=== PATIENT | female | born 1960 | race Two or more races ===

== ENCOUNTER 2024-10-27 11:34 | Emergency (ER) | payer BC, SELFPAY ==
--- NOTE | ~2024-10-27 | XR_ITS ---
EXAMINATION: XR CHEST CLINICAL INFORMATION: cough COMPARISON: None available. TECHNIQUE: 2 views of the chest were obtained. FINDINGS: No significant abnormality is noted involving the heart, lungs, mediastinum, bony thorax or soft tissues. XR/XR chest 2V IMPRESSION: No acute disease Electronically signed by: Madhav Perales MD 10/27/2024 12:34 PM EDT RP
[2024-10-27 11:40] VITALS: BP 167/92; PULSE 98; RESP 20; TEMP 36.8; O2SAT 96; BMI 20.8
--- NOTE | 2024-10-27 11:45 | ED.GENADULT ---
HPI - General Adult General Chief complaint: Dyspnea Stated complaint: sob Time Seen by Provider: 10/27/24 14:13 Source: patient Mode of arrival: ambulatory Limitations: language barrier (D[place]iboutian speaking cable television access coordinator utilized) History of Present Illness ED Provider: Eugenie Garcia NP HPI narrative: Patient is a 64-year-old female who presents emergency department for evaluation. She is currently here on vacation visiting from [place], arrived 10 days ago. She has been experiencing for the past 3 days shortness of breath particularly during episodes of her dry cough, or with deep inspiration, intermittent chest pain substernal associated with this, sore throat but no difficulty swallowing, feeling generally fatigued. She admits to having very bad seasonal allergies even at home for which she typically takes Benadryl very often for. She has not taken any allergy medication since being in the local area over the past 10 days. Has not visited here for many years, but does feel in the past she has experienced similar symptoms. She denies any dizziness, lightheadedness, weakness, falls or injuries. No associated abdominal pain nausea or vomiting. Related Data Previous Rx's ?Medication ?Instructions ?Recorded albuterol sulfate 90 mcg/actuation 2 puff inhalation Q4-6H PRN 10/27/24 aerosol inhaler (Ventolin HFA) shortness of breath or wheezing #6.7 grams cetirizine 10 mg tablet 10 mg PO DAILY PRN allergy 10/27/24 symptoms #30 tabs Allergies Allergy/AdvReac Type Severity Reaction Status Date / Time No Known Allergies Allergy Verified 10/27/24 11:47 Review of Systems Review of Systems: Yes all other systems are reviewed and are negative PMFSH Past Medical History Attestation statement: The following information was validated with the patient. Source: old records reviewed Social History Social History Smoked in Last 30 Days: No Use of substances other than those prescribed or required for medical reasons: No Advance Directives: No Advance Directives Information Provided: Yes Do you have a plan to hurt others: No Plan Physical Exam ED Exam Exam: Appearance: Alert.?Oriented to person, place and time. No acute distress.?Normal affect. Eyes: Pupils equal, round and reactive to light.? ENT: Pharynx normal.??Now tonsillar hypertrophy or exudates. Uvula midline. No trismus. No drooling. No hoarseness to the voice. Neck: Normal inspection.? Neck supple.??No cervical adenopathy CVS: Heart sounds normal. Normal heart rate and rhythm.? Pulses normal.?? Respiratory: No respiratory distress.? Lung sounds clear to auscultation bilaterally?? Abdomen: Soft and non-tender. Normoactive bowel sounds.?? Skin: Skin warm and dry.? Normal skin color.? . Extremities: No lower extremity edema.? No calf ttp? Neuro: Moves all extremities spontaneously. Sensation intact bilaterally. Ambulates with normal steady gait. Vital Signs: Vital Signs - 24 hr 10/27/24 11:40 10/27/24 14:02 10/27/24 14:10 Temperature 98.3 F 97.9 F 98.9 F Pulse Rate 98 87 Respiratory Rate 20 16 Blood Pressure 167/92 H 176/92 H 185/87 H Pulse Oximetry 96 99 Oxygen Delivery Method Room Air Room Air 10/27/24 16:47 Temperature 98.9 F Pulse Rate 86 Respiratory Rate 18 Blood Pressure 188/89 H Pulse Oximetry 97 Oxygen Delivery Method Room Air BMI result Body Mass Index 20.8 Course Course Course Narrative: RME, this is a rapid medical exam performed by Zachary Sow please refer to primary provider for complete H&P- 64-year-old female presents for evaluation of cough, body aches and shortness of breath. Symptoms started 3 days ago. She reports that she is on vacation from [place] and has been here for 10 days. Plan for labs, chest x-ray and viral swabs Medical Decision Making Medical Decision Making MDM Narrative: Patient is a 64 year past medical history of hypertension, hypothyroidism, hyperlipidemia, anxiety, osteoporosis, osteoarthritis who presents emergency department for evaluation of upper respiratory symptoms in addition to generalized weakness intermittent chest pain and shortness of breath as per HPI. She appears overall very well nontoxic afebrile. Speaking clear full sentences, LS CTA, no tachypnea or hypoxia. Wells block risk, low suspicion for pulmonary embolism. CXR was obtained in his without consolidation or infiltrate to suggest pneumonia, no pleural effusions or evidence of pedal edema to suggest CHF, BNP is within normal range. High sensitive troponin is below detectable limits, ECG revealing normal sinus rhythm with ventricular rate of 76, normal AYDE, QTC of 443, no ST-elevation, given duration of symptoms and lack of troponinemia at this time, do not suspect ACS viral serologies are negative. Group a strep test was negative, examination is not consistent with RPA/BOX BRANDER. I did review with patient that her symptoms may be due to exacerbation of allergies given her extensive history of such, and she is not typically exposed to the local environment, at this time treating for bronchitis, with recommendation for use of albuterol inhaler as needed, in addition to daily nondrowsy antihistamine in strict return precautions. All questions answered Differential Diagnosis Differential Diagnoses: The differential diagnosis associated with the presentation includes (See narrative above) Admission/Observation Consideration of admission/observation: Escalation of care including admission/observation considered Lab Data MDM Lab Attestation statement: I reviewed the patient's lab results. (See narrative above) 10/27/24 12:11 10/27/24 12:11 Labs: Lab Results 10/27/24 Range/Units 12:11 WBC 7.4 (4.8-10.8) X10*3/uL RBC 5.39 (4.20-5.50) X10*6/uL Hgb 15.2 (12.0-16.0) g/dl Hct 46.6 (37.0-47.0) % MCV 86.5 (80.0-98.0) fL MCH 28.2 (27.0-33.0) pg MCHC 32.6 (31.0-35.0) g/dl RDW 14.1 (11.0-16.0) % Plt Count 222 (160-400) X10*3/uL MPV 10.0 (9.4-12.3) fL Immature Gran % (Auto) 0.5 H (0.0-0.4) % Neut % (Auto) 72.9 (45-73) % Lymph % (Auto) 19.7 L (20-40) % Charlton % (Auto) 5.7 (2-11) % Eos % (Auto) 0.5 (0-4) % Baso % (Auto) 0.7 (0-2) % Lymph # (Auto) 1.5 (1.2-4.9) X10*3/uL Charlton # (Auto) 0.4 (0.1-1.2) X10*3/uL Eos # (Auto) 0.0 (0.0-0.4) X10*3/uL Baso # (Auto) 0.1 (0.0-0.2) X10*3/uL Abs Immat Gran (auto) 0.04 H (0.00-0.03) X10*3/uL Absolute Neuts (auto) 5.4 (2.0-8.3) x10*3/uL Absolute Nucleated RBC 0.000 (0.0-0.012) X10*3/uL Nucleated RBC % (auto) 0.0 (0.0-0.2) /100WBC Sodium 139 (135-145) mmol/L Potassium 3.6 (3.3-5.1) mmol/L Chloride 106 (96-108) mmol/L Carbon Dioxide 25 (22-29) mmol/L Anion Gap 12 (12-20) BUN 9 (9-16) mg/dL Creatinine 0.69 (0.5-1.4) mg/dL Estim Creat Clear Calc 75.1 Estimated GFR > 60 Random Glucose 126 H (60-115) mg/dL Calcium 9.5 (8.4-10.2) mg/dL Total Bilirubin 0.6 (0.0-1.0) mg/dL AST 34 H (5-31) U/L ALT 32 H (0-31) U/L Alkaline Phosphatase 81 (39-117) U/L Troponin I High Sens < 2.7 (<3.5-17.0) ng/L B-Natriuretic Peptide 13 (<100) pg/mL Total Protein 7.7 (6.5-8.0) g/dL Albumin 4.7 (3.5-5.0) g/dL Influenza Type A (PCR) NEGATIVE (Negative) Influenza Type B (PCR) NEGATIVE (Negative) RSV RNA Qual (PCR) NEGATIVE (Negative) SARS-CoV-2 RNA (RT-PCR) NEGATIVE (Negative) S. pyogenes GrpA SAURAV Negative (Negative) Independent Interpretation I performed an independent interpretation of an: EKG (See narrative above) and Plain X-Ray (See narrative above) Radiology Impression Discussion of test interpretation with radiology: I have reviewed the radiologist's reading. Radiologist Impression: XR/XR chest 2V IMPRESSION: No acute disease Independent Historian Clinical information obtained from an independent historian. History obtained from or confirmed by: Other (son) Prescription Management I considered prescription management with: Other (See narrative above) Chronic Conditions Patient?s care impacted by: Other (See narrative above) Discharge Plan Discharge Clinical Impression: Bronchitis Patient Disposition: Home, Self-Care Instructions: How to Use a Metered-Dose Inhaler (ED), Acute Bronchitis (ED) Prescriptions: New albuterol sulfate [Ventolin HFA] 90 mcg/actuation HFA aerosol inhaler 2 puff inhalation Q4-6H PRN (Reason: shortness of breath or wheezing) Qty: 6.7 0RF cetirizine 10 mg tablet 10 mg PO DAILY PRN (Reason: allergy symptoms) Qty: 30 0RF Referrals: Physician,Unknown J [Primary Care Provider, Medical] Interventions: ED Discharge Assessment Last Done: 10/27/24 16:47 Discharge Date/Time: 10/27/24 16:54 Print Language: [place]ib[place]ian
[2024-10-27 12:17] LABS: MANUAL DIFF FLAG NO
[2024-10-27 12:26] LABS: Hematocrit 46.6 % (37.0-47.0); Hemoglobin 15.2 g/dl (12.0-16.0); Imm Gran Abs Auto 0.04 X10*3/uL (0.00-0.03); Imm Gran Pct Auto 0.5 % (0.0-0.4); Lymphocytes Absolute Auto 1.5 X10*3/uL (1.2-4.9); Mean Corpuscular HGB Conc 32.6 g/dl (31.0-35.0); Mean Corpuscular Hemoglobin 28.2 pg (27.0-33.0); Mean Corpuscular Volume 86.5 fL (80.0-98.0); NRBC Abs Auto 0.000 X10*3/uL (0.0-0.012); NRBC Pct Auto 0.0 /100WBC (0.0-0.2); Platelet Count 222 X10*3/uL (160-400); Red Blood Count 5.39 X10*6/uL (4.20-5.50); White Blood Count 7.4 X10*3/uL (4.8-10.8)
[2024-10-27 12:27] LABS: IDNOW Serial# 55D5AD1C; Strep A Nucleic Acid Negative (Negative)
[2024-10-27 12:34] LABS: Alanine Aminotransferase 32 U/L (0-31); Albumin Level 4.7 g/dL (3.5-5.0); Alkaline Phosphatase 81 U/L (39-117); Anion Gap 12 (12-20); Aspartate Amino Transferase 34 U/L (5-31); Blood Urea Nitrogen 9 mg/dL (9-16); Calcium 9.5 mg/dL (8.4-10.2); Carbon Dioxide 25 mmol/L (22-29); Chloride 106 mmol/L (96-108); Creatinine Clr Calc Pharmacy 75.1; Estimated Glomerular Filt Rate > 60; Potassium 3.6 mmol/L (3.3-5.1); Sodium 139 mmol/L (135-145); Total Protein 7.7 g/dL (6.5-8.0)
[2024-10-27 12:38] LABS: B Type Natriuretic Peptide 13 pg/mL (<100)
[2024-10-27 12:55] LABS: Resp Syncy Virus RNA Qual PCR NEGATIVE (Negative); SARS COV2 PCR INHOUSE NEGATIVE (Negative)
[2024-10-27 14:02] VITALS: BP 176/92; PULSE 87; RESP 16; TEMP 36.6; O2SAT 99
[2024-10-27 14:10] VITALS: BP 185/87; TEMP 37.2
--- NOTE | 2024-10-27 15:01 | ECG_ITS ---
Test Reason : CHEST PAIN Blood Pressure : */* mmHG Vent. Rate : 76 BPM Atrial Rate : 76 BPM P-R Int : 150 ms QRS Dur : 82 ms QT Int : 394 ms P-R-T Axes : 52 45 59 degrees QTcB Int : 443 ms Normal sinus rhythm Normal ECG No previous ECGs available Referred By: Eugenie Garcia Electronically Signed By: Derrell Valente
[2024-10-27 15:31] LABS: Troponin-I High Sensitivity < 2.7 ng/L (<3.5-17.0)
[2024-10-27 16:47] VITALS: BP 188/89; PULSE 86; RESP 18; TEMP 37.2; O2SAT 97
== END 2024-10-27 16:54 | disposition home or self-care (01) ==
PROVIDERS: Nurse Practitioner Family; Physician Assistant; Emergency Provider Emergency Medicine Emergency Medical Services
DX: J40 Bronchitis, not specified as acute or chronic (principal); R06.02 Shortness of breath; R07.89 Other chest pain; R53.83 Other fatigue; J02.9 Acute pharyngitis, unspecified; J30.2 Other seasonal allergic rhinitis; M79.10 Myalgia, unspecified site; Z03.818 Encounter for observation for suspected exposure to other biological agents ruled out; Z79.899 Other long term (current) drug therapy
CPT/HCPCS: 36415; 71046; 80053; 83880; 84484; 85025; 87637; 87651; 93005; 99283; 99284

== ENCOUNTER → 2024-10-27 11:45 | Outpatient (BNV) | payer SELFPAY | PROVIDERS: Visit Provider Radiology Diagnostic Radiology | DX: R05.9 Cough, unspecified (principal) | CPT/HCPCS: 71046 ==

== ENCOUNTER → 2024-10-27 15:01 | Outpatient (BNV) | payer BC, SELFPAY | PROVIDERS: Emergency Provider Emergency Medicine Emergency Medical Services; Visit Provider Internal Medicine Cardiovascular Disease | DX: R07.9 Chest pain, unspecified (principal) | CPT/HCPCS: 93010 ==